=== PATIENT | female | born 1995 | race African-American/Black ===

== ENCOUNTER 2016-07-13 10:53 | Emergency (ER) | payer OTHER ==
--- NOTE | ~2016-07-13 | CR63 ---
[facility] A Service of [facility] & [facility] RADIOLOGY TEXT RESULTS PATIENT: HARPER TOLLIVER LOCATION: CFTX : 95 UNIT #: [id number] AGE: [address]: Chelsie Cueto APRN SEX: F ORDER DR: [id number] [facility] [address] [place], [place] [address] [id number] E MR#: [id number] Acc #: [id number] NAME: HARPER TOLLIVER : 1995 SEX: F STUDY DATE/TIME: 07/13/2016 10:32 UNIT: CFTX ROOM: STUDY DESCRIPTION: CR Chest 2 View Attending Physician: Chelsie Cueto A.P.R.N. Ordering Physician: Ed Doctor [id number] [facility] Primary Care Physician: Primary Care Physician No MEDICAL IMAGING REPORT This report is preliminary unless electronic signature is present EXAM Two-view chest INDICATION Shortness of air and cough. Chest pain for 2-3 days. FINDINGS PA and lateral views of the chest without comparison. Heart and mediastinal contours are normal. Lungs are clear. IMPRESSION Normal chest radiograph. Dictated by... Monroe De La Garza M.D. THIS IS AN ELECTRONICALLY VERIFIED REPORT Monroe De La Garza M.D. at 07/13/2016 4:16 PM Andrey TD: 07/13/2016 15:25 JOB #: [id number] MEDICAL IMAGING REPORT COPY
[2016-07-13 11:20] LABS: INFLUENZA A NEG (NEG); INFLUENZA B NEG (NEG)
== END 2016-07-13 11:54 | disposition home or self-care (01) ==
LOC: CFTX 10:53
PROVIDERS: Nurse Practitioner
DX: J01.10 Acute frontal sinusitis, unspecified (principal)
CPT/HCPCS: 71020; 87804; 99284